=== PATIENT | female | born 1955 | race Caucasian/White ===

== ENCOUNTER 2021-09-15 09:00 | Emergency (ER) | payer OTHER ==
[~2021-09-15] VITALS: Ht 149.9 cm; Wt 53.1 kg
[2021-09-15 09:03] VITALS: BP 155/79
[2021-09-15] MEDS ORDERED: NACL 0.9% 500 ML IV ONE (09:25)
--- NOTE | 2021-09-15 10:31 | NUR ---
66/F C/O N/V SINCE YESTERDAY, STATES LAST NIGHT BP WAS ELEVATED AT HOME AND SHE BEGAN HAVING EPISODES OF DIZZINESS. DENIES DIZZINESS OR VISION CHANGES AT THIS TIME. PT STATED SHE HAS A HEADACHE 2/10 AND NO COMPLAINT ANYWHERE ELSE. PT STATED SHE HAS N/V BUT NO DIAHRREA. BP WAS 155/79 ON TRIAGE. PT RESTING IN BED. DAUGHTER AT BEDSIDE. PMH: DENIES NKA
[2021-09-15 10:50] LABS: BASOPHILS % (AUTO) 0.1 % (0.0-2.0); EOSINOPHILS % (AUTO) 0.2 % (0.0-4.0); HEMATOCRIT 42.4 % (36-48); HEMOGLOBIN 14.4 g/dL (12.0-16.0); LYMPHOCYTES # (AUTO) 1.2 K/uL (2.5-16.5); LYMPHOCYTES % (AUTO) 10.2 % (20.5-51.1); MEAN CORPUSCULAR HEMOGLOBIN 30 pg (27-31); MEAN CORPUSCULAR HGB CONC 34 g/dL (33-37); MEAN CORPUSCULAR VOLUME 87.7 fL (80-94); MONOCYTES # (AUTO) 0.6 K/uL (0.8-1.0); MONOCYTES % (AUTO) 5.1 % (1.7-9.3); NEUTROPHILS # (AUTO) 10.1 K/uL (1.8-7.7); NEUTROPHILS % (AUTO) 84.4 % (42.2-75.2); PLATELET COUNT (AUTO) 262 K/uL (140-450); RED BLOOD CELL COUNT(AUTO) 4.83 MIL/uL (4.20-5.40); RED CELL DISTRIBUTION WIDTH 13.1 % (11.6-13.7)
[2021-09-15 11:07] LABS: ALBUMIN 3.9 g/dL (3.4-5.0); ANION GAP 13.5 (8-16); ASPARTATE AMINOTRANSFERASE 18 U/L (15-37); CARBON DIOXIDE 25.9 mmol/L (21-32); CHLORIDE 103 mmol/L (98-107); CREATININE 0.7 mg/dL (0.6-1.3); GFR ARICAN-AMERICAN 108 mL/min (>90); GLUCOSE 126 mg/dL (74-106); MAGNESIUM 2.3 mg/dL (1.8-2.4); PHOSPHORUS 2.1 mg/dL (2.5-4.9); POTASSIUM 3.4 mmol/L (3.5-5.1); SODIUM SERUM 139 mmol/L (136-145); TOTAL BILIRUBIN 0.4 mg/dL (0.0-1.0); UREA NITROGEN, BLOOD 18 mg/dL (7-18)
[2021-09-15 12:39] LABS: APPEARANCE,URINE CLEAR (CLEAR); BILIRUBIN,URINE NEGATIVE (NEGATIVE); BLOOD, URINE TRACE-L (NEGATIVE); COLOR,URINE YELLOW (YELLOW); LEUKOCYTE ESTERASE ,URINE 2+ (NEGATIVE); NITRITE, URINE NEGATIVE (NEGATIVE); UGLUCOSE NEGATIVE (NEGATIVE)
[2021-09-15 12:49] LABS: CALCIUM OXALATE CRYSTALS,UR None Seen /HPF (None Seen); OTHER CRYSTALS,URINE None Seen /HPF (None Seen); RBC,URINE 0-5 /HPF (0-5); TRICHOMONAS,URINE None Seen /HPF (None Seen); TRIPLE PHOSPHATE CRYSTAL,UR None Seen /HPF (None Seen); URIC ACID CRYSTALS,URINE None Seen /HPF (None Seen); WBC,URINE 0-5 /HPF (0-5); YEAST,URINE None Seen /HPF (None Seen)
[2021-09-15 12:50] LABS: COARSE GRANULAR CASTS,URINE None Seen /LPF (None Seen); FINE GRANULAR CASTS,URINE None Seen /LPF (None Seen); HYALINE CASTS, URINE None Seen /LPF (None Seen); OTHER CASTS, URINE None Seen /LPF (None Seen); RED BLOOD CELL CASTS,URINE None Seen /LPF (None Seen); URINE AMORPHOUS URATE None Seen /HPF (None Seen); WAXY CASTS,URINE None Seen /LPF (None Seen)
--- NOTE | 2021-09-15 13:36 | NUR ---
Patient appears to be resting comfortably in bed. Vital Signs within normal limits. Respirations even and unlabored.
[2021-09-15 14:24] VITALS: BP 147/75
--- NOTE | 2021-09-15 14:25 | NUR ---
Patient discharged with v/s stable. Written and verbal after care instructions given and explained. Patient verbalized understanding. Ambulatory with steady gait. All questions addressed prior to discharge. Advised to follow up with PMD.
== END 2021-09-15 14:24 | disposition home or self-care (01) ==
LOC: MED 09:00
DX: R55 Syncope and collapse (principal); R53.1 Weakness; R11.2 Nausea with vomiting, unspecified; R03.0 Elevated blood-pressure reading, without diagnosis of hypertension
CPT/HCPCS: 36415; 71045; 80053; 81001; 83735; 84100; 84484; 85025; 87086; 93005; 96360; 99285; J7030